=== PATIENT | female | born 2000 | race Caucasian/White ===

== ENCOUNTER 2022-03-21 12:20 | Emergency (ER) | payer OTHER, SELFPAY ==
--- NOTE | 2022-03-21 12:23 | ED.SKABFB ---
HPI - Skin/Abscess/Foreign Bdy General Chief complaint: Skin/Abscess/Foreign Body Stated complaint: spider bite Time Seen by Provider: 03/21/22 12:23 Source: patient and RN notes reviewed History of Present Illness HPI narrative: Patient is a 21-year-old female who presents the urgent care with complaints of a spider bite to the back of the head. Patient states she woke up this morning and felt a painful region to the left backside of her head and then found a spider in her bed. Patient has been putting ice on the area. Denies of any fevers. Reports of slight pain without headache. No other acute complaints. No acute distress noted. Patient aware of the plan of care. Some parts of this dictation were generated by voice recognition software and may contain typographical and/or grammatical inaccuracies. Related Data Home Medications Medication Instructions Recorded Confirmed levonorgestrel-ethinyl estradiol tablet 03/21/22 0.1 mg-20 mcg tablet (Lessina) Allergies Allergy/AdvReac Type Severity Reaction Status Date / Time No Known Allergies Allergy Verified 03/21/22 12:27 Review of Systems Review of Systems: CONSTITUTIONAL: Denies fever, chills, or sweats. EYES: Denies visual changes, redness, or discharge. ENT: Denies rhinorrhea, congestion, sore throat, or otalgia. CARDIOVASCULAR: Denies chest pain, palpitations, or edema. RESPIRATORY: Denies cough or dyspnea. GASTROINTESTINAL: Denies abdominal pain, nausea, vomiting, or diarrhea. GENITOURINARY: Denies dysuria or hematuria. SKIN: Reports of a spider bite to the back of bed MUSCULOSKELETAL: Denies back pain, joint pain, or myalgia. NEUROLOGIC: Denies headache, numbness, or weakness. All other systems reviewed are negative, except as documented in HPI. PMFSH Comments At the time of my signature, I reviewed and agree with the nursing past medical, surgical, social, and family history. There is no relevant family history pertinent to the patient complaint. Exam Narrative: GENERAL: This is a well-nourished, well-developed patient, in no apparent distress. HEAD: normocephalic, atraumatic. EYES: PERRL. Sclera clear/white. Vision is grossly intact. EARS: External ears normal NOSE: External nose normal with no obvious nasal discharge, nares without redness, no rhinorrhea. THROAT: Mucous membranes moist NECK: Neck supple CARDIOVASCULAR: Regular rate and rhythm without murmurs, gallops, or rubs. RESPIRATORY: Clear to auscultation. Breath sounds equal bilaterally. No wheezes, rales, or rhonchi. SKIN: 0.5 cm vesicular flat lesion with surrounding erythema to the base of the left occipital region without edema or drainage NEURO: awake, alert, and oriented to person, place and time. There were no obvious focal neurologic abnormalities. EXTREMITIES: No clubbing, cyanosis, or edema. Course Course Level of Care: Express Care Visit Vital Signs Vital signs: Vital Signs Temperature 98.7 F 03/21/22 12:29 Pulse Rate 80 03/21/22 12:29 Respiratory Rate 18 03/21/22 12:29 Blood Pressure 125/79 03/21/22 12:29 Pulse Oximetry 100 03/21/22 12:29 Oxygen Delivery Room Air 03/21/22 12:29 Temperature 98.7 F 03/21/22 12:29 Pulse Rate 80 03/21/22 12:29 Respiratory Rate 18 03/21/22 12:29 Blood Pressure 125/79 03/21/22 12:29 Pulse Oximetry 100 03/21/22 12:29 Oxygen Delivery Room Air 03/21/22 12:29 Reviewed MDM - Skin/Abscess/Foreign Bdy MDM Narrative Medical decision making narrative: Advised the patient to continue ice/Tylenol/ibuprofen as needed for pain or discomfort. Complete the oral antibiotic regimen as prescribed. The regimen will cover for possible tick bite as well. Be sure to eat and drink with the medication to avoid nausea. Follow-up with your PCP within 2 to 5 days or for worsening symptoms or failure to improve. Differential Diagnosis Differential diagnosis: Likely abscess of skin or subcutaneous tissue, dermatophyto
[2022-03-21 12:29] VITALS: BP 125/79; PULSE 80; RESP 18; TEMP 37.1; O2SAT 100
== END 2022-03-21 12:45 | disposition home or self-care (01) ==
PROVIDERS: Emergency Provider Nurse Practitioner Family; PCP Pediatrics
DX: S00.96XA Insect bite (nonvenomous) of unspecified part of head, initial encounter (principal); W57.XXXA Bitten or stung by nonvenomous insect and other nonvenomous arthropods, initial encounter
CPT/HCPCS: 99203; G0463

== ENCOUNTER 2022-05-17 09:18 | Emergency (ER) | payer OTHER, SELFPAY ==
--- NOTE | 2022-05-17 09:20 | ED.DENTAL ---
HPI - Dental/Oral General Stated complaint: swollen jaw/face Time Seen by Provider: 05/17/22 09:20 Source: patient Mode of arrival: ambulatory Limitations: no limitations History of Present Illness HPI Narrative: Ms. Alba is a 22-year-old female patient presenting to the clinic today with complaints of jaw swelling face swelling and pain x2 days. She reports that today is the third day of her symptoms. She has a left jaw/facial swelling around the ear. She denies any fever, dental pain, or ear pain. She denies any URI symptoms. Related Data Home Medications Medication Instructions Recorded Confirmed levonorgestrel-ethinyl estradiol 1 tablet PO DAILY 05/17/22 05/17/22 0.1 mg-20 mcg tablet (Vienva) Allergies Allergy/AdvReac Type Severity Reaction Status Date / Time No Known Allergies Allergy Verified 05/17/22 09:26 Review of Systems Review of Systems: Pertinent positives per HPI. Patient denies any fever, chills, rash, headache, visual changes, dizziness, cough, runny nose, sore throat, shortness of breath, chest pain, palpitations, nausea, vomiting, diarrhea, constipation, abdominal pain, or any urinary issues. PMFSH Comments At the time of my signature, I reviewed and agree with the nursing past medical, surgical, social, and family history. There is no relevant family history pertinent to the patient complaint. Exam Narrative: General: Well-developed, well nourished, in no apparent distress Head: Normocephalic, atraumatic, swelling over the left parotid gland with mild tenderness to palpation and mild erythremia. Eyes: Pupils equally round and reactive to light bilaterally, EOM intact, sclera and conjunctive clear, no discharge, lids normal Ears: TMs intact and clear, ear canals clear, no drainage, grossly hearing normal. Nose: Nares patent, no discharge, no inflammation, no sinus tenderness. Mouth: Oropharynx without lesions or masses, good dentition, MMM. Neck: Supple, trachea midline, no enlargement of anterior or posterior cervical nodes, no thyroid masses or goiter palpable. Cardio: Regular rate and rhythm, s1 and s2 normal, no murmur appreciated. Resp: Clear to auscultation bilaterally anteriorly and posteriorly, no rhonchi, rales, wheezing or rubs Course Course Emergency Course: Portions of this record may have been created with voice recognition software. Level of Care: Express Care Visit Vital Signs Vital signs: Vital signs reviewed MDM - Dental/Oral MDM Narrative Medical decision making narrative: At the time of visit patient was resting comfortably on the exam table. Patient has left parotid gland swelling. She denies any fever chills URI symptoms ear pain or dental pain. No sign of infection. Vital signs are stable. Has not been around anybody with mumps or known Glenn-Jc virus. I suspect the patient has a parotid gland duct obstruction and supportive measures were discussed with the patient she voiced understanding of discharge instructions and agrees to the treatment plan. Differential Diagnosis Differential diagnosis: Likely toothache, dental abscess and other (Parotiditis, salivary gland duct block/obstruction, mono, mumps, dental infection,otitis media, otitis externa) Discharge Plan Discharge Clinical Impression: Acute parotitis, Obstruction of parotid duct Patient Disposition: Home, Self-Care Condition: Stable Instructions: Antibiotic Form, Parotid Duct Obstruction (ED) Additional Instructions: Increase fluids and stay well-hydrated Suck on sour candy to help alleviate the salivary duct obstruction May apply warm moist heat to the affected area or cool compresses-whichever one feels better. Take Tylenol/Motrin as needed for pain If you develop fever, chills, worsening of swelling, or worsening of pain may need to follow-up with PCP for lab work and further evaluation. Follow-up with your PCP in 3 to 5 days if symptoms persist or sooner if they w
[2022-05-17 09:27] VITALS: BP 127/77; PULSE 80; RESP 20; TEMP 36.6; O2SAT 100
== END 2022-05-17 09:50 | disposition home or self-care (01) ==
PROVIDERS: Emergency Provider Nurse Practitioner Family
DX: K11.21 Acute sialoadenitis (principal); K11.8 Other diseases of salivary glands
CPT/HCPCS: 99211; G0463

== ENCOUNTER 2023-02-14 12:39 | Emergency (ER) | payer OTHER, SELFPAY ==
--- NOTE | 2023-02-14 12:43 | ED.URI ---
HPI - URI/Sore Throat General Chief Complaint: Upper Respiratory Infection Stated Complaint: SINUS CONGESITON Time Seen by Provider: 02/14/23 12:42 Source: patient Mode of arrival: ambulatory Limitations: no limitations History of Present Illness HPI Narrative: patient is a 22-year-old female who presents with left ear pain, congestion, cough, sore throat, sinus pressure since Friday. Patient has been taking daily Zyrtec along with [id number] cold and flu medicine with mild relief. Denies any sick contacts. Denies any shortness of breath, fever, chills. Related Data Home Medications Medication Instructions Recorded Confirmed levonorgestrel-ethinyl estradiol 1 tablet PO DAILY 05/17/22 02/14/23 0.1 mg-20 mcg tablet (Vienva) Allergies Allergy/AdvReac Type Severity Reaction Status Date / Time No Known Allergies Allergy Verified 02/14/23 12:48 Review of Systems Review of Systems: All systems reviewed & are unremarkable except as noted in HPI and below Constitutional: Constitutional: Denies body ache(s), Denies chills, Denies fatigue, Denies fever(s), Denies headache(s), Denies malaise and Denies weakness Eyes: Eyes: Denies blurry vision, Denies itchy eyes and Denies loss of vision ENT: Reports otalgia, Reports headache(s), Reports nasal congestion, Denies sinus pain and Reports sore throat Cardiovascular: Cardiovascular: Denies chest pain, Denies irregular heart rhythm and Denies dyspnea Respiratory: Respiratory: Reports cough and Denies dyspnea Gastrointestinal: Gastrointestinal: Denies abdominal pain, Denies diarrhea, Denies nausea and Denies vomiting Musculoskeletal: Musculoskeletal: Denies back pain, Denies myalgias and Denies arthralgias Integumentary/Breasts: Skin/Breast: Denies pruritus and Denies rash Neurologic: Denies headache(s), Denies loss of vision and Denies weakness Psychiatric: Psychiatric: Reports no additional psychiatric complaints Endocrine: Endocrine: Denies fatigue Allergic/Immunologic: Allergic/Immunologic: Denies itchy eyes PMFSH Comments At time of signature, agree with nursing past medical, surgical, social and family history. There is no relevant family history pertinent to the presenting complaint. Exam Const: General: cooperative, healthy appearing, comfortable, no acute distress and well nourished Nutritional Appearance: well nourished Orientation/consciousness: patient oriented x3 Limitations: no limitations HENMT: Head: normal to inspection, normocephalic and atraumatic Ears: hearing grossly normal bilaterally, external ears normal, TM normal on the right, EAC's normal, no periauricular adenopathy and TM abnormal bulging on the left and erythematous on the left Face/Nose/Sinus: Normal external nose present, Abnormal mucous membranes and turbinates present erythematous bilateral and diffuse, normal facial exam, sinuses nontender and face symmetric Face and sinus: normal facial exam, sinuses nontender and face symmetric Mouth: Yes Normal oral and palatal mucosa present, Yes lip normal, Yes tongue normal, Yes Normal salivary glands and ducts present, Yes oropharynx normal and Yes moist mucous membranes Teeth and gingiva: dentition normal Throat: posterior oropharynx normal, tonsils normal and uvula midline Eyes: General: appearance normal, both eyes and all related structures Alignment and Position: alignment normal and position normal Periorbital: periorbital findings normal Eyelids: eyelids normal Pupils: Equal, round and reactive pupils present Neck: Neck: normal visual inspection, full ROM, no lymphadenopathy and supple Chest: Chest palpation & inspection: normal inspection of the chest and normal palpation of entire chest wall Resp: Effort & Inspection: normal respiratory effort and able to speak in complete sentences Auscultation: clear to auscultation bilaterally, no crackles, no rales, no rhonchi and no wheezes Cardio: Rate: regular rate Rhythm: reg
[2023-02-14 12:50] VITALS: BP 127/77; PULSE 102; RESP 16; TEMP 36.9; O2SAT 100
== END 2023-02-14 13:18 | disposition home or self-care (01) ==
PROVIDERS: Emergency Provider Nurse Practitioner Family
DX: H65.192 Other acute nonsuppurative otitis media, left ear (principal)
CPT/HCPCS: 99213; G0463

== ENCOUNTER 2025-05-30 13:13 | Outpatient (CLI) | payer OTHER, SELFPAY ==
--- NOTE | ~2025-05-30 | US_ITS ---
EXAMINATION: US OB <= 14 weeks fetus DATE: 05/30/2025 13:42 INDICATION: Gestational dating TECHNIQUE: Real-time transabdominal obstetric ultrasound. FINDINGS: No prior studies for comparison. The uterus measures 10.7 x 8.4 x 8.3 cm. There is an intrauterine gestational sac, with pole identified. The crown rump length measures 4 cm, which correlates with a estimated gestational age of 11 weeks 0 days. heart tones are identified measuring 155 BPM. IMPRESSION: 1. SL IUP with an EGA of 11 weeks, 0 days (EDC by current ultrasound of 12/19/2025). Reviewed, dictated and finalized at location O. IMPRESSION: 1. SL IUP with an EGA of 11 weeks, 0 days (EDC by current ultrasound of 12/20/19).
== END 2025-05-30 13:14 | disposition home or self-care (01) ==
LOC: MICIMG 13:17
PROVIDERS: PCP Nurse Practitioner Obstetrics & Gynecology; Visit Provider Nurse Practitioner Obstetrics & Gynecology
DX: N91.2 Amenorrhea, unspecified (principal); Z3A.11 11 weeks gestation of pregnancy
CPT/HCPCS: 76801

== ENCOUNTER 2025-06-28 10:25 | Outpatient (CLI) | payer OTHER, SELFPAY ==
--- OUTSIDE RECORDS SUMMARY | 2025-06-28 11:14 | XMS_ITS | Clinical Summary ---
Author Organization [facility] [address] Address [address] [place] [phone] Care Team Providers Care Rotary Drill Operator Helper Name Role Phone Unknown, Notinfile Primary Care Provider Unavail able No, Physician Unavailable Allergies No known active allergies Medications Lutera, 28, 0.1-20 mg-mcg per tablet Take 1 tablet by mouth daily 08/10/2021 Active Lessina 0.1-20 mg-mcg per tablet Take 1 tablet by mouth daily 08/10/2023 Active Active Problems No known active problems Social History Tobacco Use Types Packs/Day Years Used Date Smoking Tobacco: Never Assessed Comments Unknown Sex and Gender Information Value Date Recorded Sex Assigned at Not on file Legal Sex Female 3:34 AM QUAL FIELD MANAGER Gender Identity Not on file Sexual Orientation Not on file Obstetrics History Last Filed Vital Signs Vital Sign Reading Time Taken Comments Blood Pressure 128/70 11/24/2023 12:31 PM QUAL FIELD MANAGER Pulse 125 11/24/2023 12:31 PM QUAL FIELD MANAGER Temperature 36.8 C (98.3 F) 11/24/2023 12:31 PM QUAL FIELD MANAGER Respiratory Rate 18 11/24/2023 12:31 PM QUAL FIELD MANAGER Oxygen Saturation 98% 11/24/2023 12:31 PM QUAL FIELD MANAGER Inhaled Oxygen Concentration - - Weight 59 kg (130 lb) 11/24/2023 12:31 PM QUAL FIELD MANAGER Height 165.1 cm (5' 5) 11/24/2023 12:31 PM QUAL FIELD MANAGER Body Mass Index 21.63 11/24/2023 12:31 PM QUAL FIELD MANAGER Plan of Treatment Health Maintenance Due Date Last Done Comments Cervical Cancer Screening 1998 Depression Screening 1998 Hepatitis C Screening 1998 DTaP/Tdap/Td Vaccine (1 - Tdap) 2009 Varicella Vaccines (1 of 2 - 13+ 2-dose series) 2011 Hepatitis B Screening 2016 Regular Well Visit/Exam 18-64 2016 HPV Vaccines (1 - 3-dose SCDM series) 2025 Covid-19 Vaccine ( - season) 2025 09/01/2021, 01/03/2021, 12/05/2020 Influenza Vaccine (#1) 2025 , 09/11/2019, 08/24/2018, Additional history exists Pneumococcal vaccine <65 Aged Out No longer eligible based on patient's age to complete this topic Insurance [employer] [facility] [id number] [facility] [id number] Care Teams Rotary Drill Operator Helper Relationship Specialty Start Date End Date Unknown, Notinfile PCP - General 09/18/23 No, Physician 09/18/23
--- OUTSIDE RECORDS SUMMARY | 2025-06-28 11:14 | XMS_ITS | Clinical Summary ---
Author Organization [facility] Address [address] [place] [address] Care Team Providers Care Roving Weight Gauger Name Role Phone Jaycee Riley MD Primary Care Provider [phone] Source Comments [facility],non-owned Affiliates and Associated Physician Practices is amultiple site organization consisting of ambulatory clinics and hospital sitesin [place], [place], [place] and [place]. This disclosure is being madepursuant to the Care Everywhere program and may not contain all information available regarding this patient. Last updated 18.[facility] [employer] Allergies No known active allergies Medications * Be aware that medications may not be up to date on this document. Alwaysverify current medications with the patient. No known medications Active Problems No known active problems Encounters Date Type Department Care Team Description 06/03/2025 Telephone [facility]'s Health Maternal & Care [address] [place] [address] Shelly Steele Referral from Last 3 Months Social History Tobacco Use Types Packs/Day Years Used Date Smoking Tobacco: Never Alcohol Use Standard Drinks/Week Comments No 0 (1 standard drink = 0.6 oz pur e alcohol) Comments No Sex and Gender Information Value Date Recorded Sex Assigned at Not on file Legal Sex Female 1:22 PM CDT Gender Identity Not on file Sexual Orientation Not on file Plan of Treatment Health Maintenance Due Date Last Done Comments HIV SCREENING 2013 HEPATITIS C SCREENING 05/03/2016 DTAP/TDAP/TD VACCINES (1 - Tdap) 2017 HEPATITIS B VACCINE (1 of 3 - 19+ 3-dose series) 2017 PAP SMEAR 2019 DEPRESSION SCREENING 10/06/2024 HPV VACCINE (1 - 3-dose SCDM series) 2025 COVID-19 VACCINE (2023-2 5 season) 2025 INFLUENZA VACCINE (#1) 2025 ZOSTER VACCINE (1 of 2) 2048 HIB VACCINE Aged Out No longer eligi ble based on patient's age to complete this topic MENINGOCOCCAL (Group B) VACC INE SHARED DECISION-MAKING Aged Out No longer eligibl e based on patient's age to complete this topic MENINGOCOCCAL GROUPS A/C/Y/W VACCINE Aged Out No longer eligible b ased on patient's age to complete this topic PNEUMOCOCCAL VACCINE Aged Out No long er eligible based on patient's age to complete this topic Insurance [employer] Care Teams Roving Weight Gauger Relationship Specialty Start Date End Date Jaycee Riley MD [address] [place] [address] [address] [place] [id number] PCP - General Pediatrics 12/27/13
[2025-06-28 11:16] LABS: Add Urine Microscopic? NO; Appearance Urine Clear (Clear); Glucose Urine UA Negative (Negative); Leukocyte Esterase Ur Negative LEU/UL (Negative); Nitrate Urine Negative (Negative); Specific Grav Ur 1.007 (1.001-1.035)
[2025-06-28 11:18] LABS: Hematocrit 32.2 % (37.0-47.0); Hemoglobin 11.0 g/dL (12.0-15.0); Mean Corpuscular HGB Conc 34.2 g/dl (32-36); Mean Corpuscular Hemoglobin 30.5 pg (26-34); Mean Corpuscular Volume 89.2 fl (80-100); Platelet Count Result 281 k/mm3 (150-375); Red Blood Count 3.61 M/mm3 (4.2-5.4); White Blood Count 6.8 K/mm3 (4.5-10.0)
[2025-06-28 12:38] LABS: Syphilis IgG/IgM Antibody Non-Reactive (Nonreactive)
[2025-06-28 12:40] LABS: Thyroid Stimulating Hormone 0.980 uIU/mL (0.465-4.680)
[2025-06-28 12:41] LABS: Hepatitis B Surface Antigen Negative (Negative)
[2025-06-28 12:50] LABS: HIV 1/2 Ab P24 Ag Result Negative (Negative)
[2025-06-28 16:27] LABS: Hepatitis B Surface Antigen 0.01 S/C
[2025-06-29 14:08] LABS: Varicella-Zoster Ab, IgG Reactive (Non Reactive); Varicella-Zoster Ab, IgM <0.91 index (0.00-0.90)
== END 2025-06-28 10:26 | disposition home or self-care (01) ==
LOC: ANHLAB 10:27
PROVIDERS: Visit Provider Obstetrics & Gynecology
DX: Z34.90 Encounter for supervision of normal pregnancy, unspecified, unspecified trimester (principal)
CPT/HCPCS: 36415; 81003; 83020; 83021; 84443; 85027; 85660; 86593; 86703; 86762; 86787; 86803; 86850; 86900; 86901; 87086; 87340; G0432

== ENCOUNTER 2025-10-04 09:21 | Outpatient (CLI) | payer OTHER, SELFPAY ==
--- OUTSIDE RECORDS SUMMARY | 2025-10-04 09:35 | XMS_ITS | Clinical Summary ---
Author Organization [facility] Address [address] [place] [address] Care Team Providers Care Film Maker Name Role Phone Jaycee Riley MD Primary Care Provider Source Comments [facility],non-owned Affiliates and Associated Physician Practices is amultiple site organization consisting of ambulatory clinics and hospital sitesin [place], [place], [place] and [place]. This disclosure is being madepursuant to the Care Everywhere program and may not contain all information available regarding this patient. Last updated 18.[facility] Allergies No known active allergies Medications * Be aware that medications may not be up to date on this document. Alwaysverify current medications with the patient. No known medications Active Problems No known active problems Social [...] - 3-dose SCDM series) 2025 COVID-19 VACCINE ( - 2024-2 6 season) 2025 INFLUENZA VACCINE (#1) 2025 ZOSTER [...] patient's age to complete this topic Insurance [employer] Care Teams Film Maker Relationship Specialty Start Date End Date Jaycee Riley MD [address] [place] [phone] PCP - General Pediatrics 12/27/13
--- OUTSIDE RECORDS SUMMARY | 2025-10-04 09:36 | XMS_ITS | Clinical Summary ---
Author Organization [facility] [address] Address [address] [place] [phone] Care Team Providers Care Fishing Tool Operator Name Role Phone Unknown, Notinfile Primary Care [...] on file Legal Sex Female 3:34 AM MANGLE CATCHER Gender Identity Not on file Sexual Orientation Not on file Last Filed Vital Signs Vital Sign Reading Time Taken Comments Blood Pressure 128/70 11/24/2023 12:31 PM MANGLE CATCHER Pulse 125 11/24/2023 12:31 PM MANGLE CATCHER Temperature 36.8 C (98.3 F) 11/24/2023 12:31 PM MANGLE CATCHER Respiratory Rate 18 11/24/2023 12:31 PM MANGLE CATCHER Oxygen Saturation 98% 11/24/2023 12:31 PM MANGLE CATCHER Inhaled Oxygen Concentration - - Weight 59 kg (130 lb) 11/24/2023 12:31 PM MANGLE CATCHER Height 165.1 cm (5' 5) 11/24/2023 12:31 PM MANGLE CATCHER Body Mass Index 21.63 11/24/2023 12:31 PM MANGLE CATCHER Plan of Treatment Health Maintenance Due Date Last Done Comments Cervical Cancer Screening 1998 Depression Screening 1998 Hepatitis C Screening 1998 DTaP/Tdap/Td Vaccine (1 - Tdap) 2009 Varicella Vaccines (1 of 2 - 13+ 2-dose series) 2011 Hepatitis B Screening 2016 Regular Well Visit/Exam 18-64 2016 HPV Vaccines (1 - 3-dose SCDM series) 2025 Covid-19 Vaccine (4 - 2024- season) 2025 09/01/2021, 01/03/2021, 12/05/2020 Influenza Vaccine (#1) 2025 , 09/11/2019, 08/24/2018, Additional history exists Pneumococcal vaccine <65 Aged Out No longer eligible based on patient's age to complete this topic Insurance [employer] [facility] [id number] [facility] [id number] Care Teams Fishing Tool Operator Relationship Specialty Start Date End Date Unknown, Notinfile PCP - General 09/18/23 No, Physician 09/18/23"
[2025-10-04 11:16] LABS: Hematocrit 29.4 % (37.0-47.0); Hemoglobin 10.1 g/dL (12.0-15.0); Mean Corpuscular HGB Conc 34.4 g/dl (32-36); Mean Corpuscular Hemoglobin 31.8 pg (26-34); Mean Corpuscular Volume 92.5 fl (80-100); Platelet Count Result 255 k/mm3 (150-375); Red Blood Count 3.18 M/mm3 (4.2-5.4); White Blood Count 9.5 K/mm3 (4.5-10.0)
[2025-10-04 11:41] LABS: Glucose 1 Hour PP 50gm Dose 86 mg/dL
[2025-10-04 12:07] LABS: Syphilis IgG/IgM Antibody Non-Reactive (Nonreactive)
[2025-10-04 12:21] LABS: HIV 1/2 Ab P24 Ag Result Negative (Negative)
== END 2025-10-04 09:22 | disposition home or self-care (01) ==
LOC: ANHLAB 09:22
PROVIDERS: Visit Provider Nurse Practitioner Family
DX: Z34.90 Encounter for supervision of normal pregnancy, unspecified, unspecified trimester (principal)
CPT/HCPCS: 36415; 82947; 85027; 86593; 86703; G0432